=== PATIENT | female | born 1985 | race Caucasian/White ===

== ENCOUNTER 2016-04-03 15:54 | Emergency (ER) | payer OTHER, BC ==
[~2016-04-03] VITALS: Ht 154.9 cm; Wt 73.4 kg
[~2016-04-03 15:54] MED LIST: FLINTSTONES1 TABLET; MULTIVITAMIN1 EAC2 PO; Motrin PO
[2016-04-03 16:55] LABS: HEMATOCRIT 35.7 % (36.0-46.0); MCH 29.8 PG (29.0-34.0); MCHC 33.6 G/DL (30.0-36.0); MCV 88.6 FL (83-99); MEAN PLAT.VOLUME 10.3 uM^3 (9.5-12.4); PLATELET COUNT 261 K/uL (156-360); RBC DIS.WIDTH-CV 12.7 % (11.8-14.6); RBC DIS.WIDTH-SD 40.4 % (39-53); RED BLOOD COUNT 4.03 M/uL (3.80-5.20); WHITE BLOOD COUNT 13.8 K/uL (4.1-10.2)
[2016-04-03 21:39] LABS: ADD MIUA? YES; BILIRUBIN NEGATIVE; BLOOD LARGE; COLOR YELLOW ((YELLOW)); GLUCOSE (STRIP) NEGATIVE; KETONES 40; LEUKOCYTES NEGATIVE; NITRITE NEGATIVE; PROTEIN (STRIP) TRACE; SPECIFIC GRAVITY 1.026 (1.000-1.030); UROBILINOGEN 0.2 MG/DL (0.2-1.0)
[2016-04-03 22:23] LABS: BACTERIA 1+; CASTS NONE SEEN /LPF; CRYSTALS NONE SEEN; EPITHELIAL CELLS 2+; MUCUS 4+; RED BLOOD CELLS 15-20 /HPF (0-5); UCUL ADDED? NO; WHITE BLOOD CELLS 0-5 /HPF (0-5)
[2016-04-03] MEDS ORDERED: ZOFRAN4 MG PO (23:16)
[2016-04-03] MEDS ORDERED: TYLENOL WITH C1 EACH PO (23:16)
[2016-04-04 00:13] VITALS: BP 135/88
== END 2016-04-04 00:18 | disposition home or self-care (01) ==
LOC: EME 15:54
PROVIDERS: Emergency Medicine
DX: O99.89 Other specified diseases and conditions complicating pregnancy, childbirth and the puerperium (principal); R10.9 Unspecified abdominal pain; R31.9 Hematuria, unspecified; Z87.442 Personal history of urinary calculi; Z3A.29 29 weeks gestation of pregnancy
CPT/HCPCS: 76770; 81003; 85027; 99281; 99285; J2270; J2765; J7030

== ENCOUNTER → 2016-05-09 | Outpatient (CLI) | payer BC ==
[~2016-05-09] VITALS: Ht 154.9 cm; Wt 73.0 kg
[~2016-05-09] MED LIST changes: +PRENATAL TABLE1 EACH PO; +TYLENOL WITH C1 EACH PO; +ZOFRAN4 MG PO
[2016-05-09 09:22] VITALS: BP 129/76
== END | disposition home or self-care (01) ==
LOC: IVINF 08:58
DX: O36.0920 Maternal care for other rhesus isoimmunization, second trimester, not applicable or unspecified (principal); Z3A.28 28 weeks gestation of pregnancy
CPT/HCPCS: 96372; J2790

== ENCOUNTER 2016-06-14 06:08 | Outpatient (CLI) | payer BC ==
[~2016-06-14] VITALS: Ht 154.9 cm; Wt 73.9 kg
[2016-06-14 06:24] VITALS: BP 127/80
[2016-06-14 06:30] VITALS: BP 127/80
[2016-06-14 07:35] VITALS: BP 114/75
[2016-06-14 07:37] LABS: ADD MIUA? YES; BILIRUBIN NEGATIVE; BLOOD LARGE; COLOR YELLOW ((YELLOW)); GLUCOSE (STRIP) NEGATIVE; KETONES NEGATIVE; LEUKOCYTES NEGATIVE; NITRITE NEGATIVE; PROTEIN (STRIP) 30; SPECIFIC GRAVITY 1.023 (1.000-1.030); UROBILINOGEN 0.2 MG/DL (0.2-1.0)
[2016-06-14 07:48] LABS: BACTERIA RARE /HPF; CALCIUM OXALATE CRYSTALS 1+ /HPF; EPITHELIAL CELLS 1+ /HPF; MUCUS 2+ /LPF; RED BLOOD CELLS TNTC /HPF (0-5)
[2016-06-14 08:17] LABS: EOSINOPHIL (%) 0.3 % (0-5); HEMATOCRIT 34.1 % (36.0-46.0); IMMATURE GRANULOCYTE (%) 0.8 % (0.0-0.7); IMMATURE GRANULOCYTE COUNT 0.1 K/uL; INSTRUMENT ABS NEUTROPHIL CT 9.5 K/uL; LYMPHOCYTE COUNT 1.1 K/uL (1.0-2.8); MCH 27.8 PG (29.0-34.0); MCHC 32.3 G/DL (30.0-36.0); MCV 86.3 FL (83-99); MEAN PLAT.VOLUME 10.4 uM^3 (9.5-12.4); MONOCYTE (%) 5.7 % (3-12); MONOCYTE COUNT 0.6 K/uL (0-0.8); NEUTROPHIL (%) 83.5 % (45-76); NEUTROPHIL COUNT 9.5 K/uL (1.8-6.4); PLATELET COUNT 256 K/uL (156-360); RBC DIS.WIDTH-CV 12.9 % (11.8-14.6); RBC DIS.WIDTH-SD 40.6 % (39-53); RED BLOOD COUNT 3.95 M/uL (3.80-5.20); WHITE BLOOD COUNT 11.3 K/uL (4.1-10.2)
[2016-06-14] MEDS ORDERED: VICODIN 5-3001 EACH PO (09:42)
[2016-06-14 10:43] VITALS: BP 106/69
== END 2016-06-14 10:55 | disposition home or self-care (01) ==
LOC: LDRP-OP 06:08 → 2WEST 06:09 → LDRP-OP 09-01 09:27
PROVIDERS: Nurse Practitioner
DX: O26.893 Other specified pregnancy related conditions, third trimester (principal); R31.9 Hematuria, unspecified; Z3A.33 33 weeks gestation of pregnancy; R10.32 Left lower quadrant pain
CPT/HCPCS: 59025; 76770; 81003; 85025; 87086; G0378; J2270; J7120

== ENCOUNTER 2016-06-16 06:26 | Outpatient (CLI) | payer BC ==
[~2016-06-16] VITALS: Ht 154.9 cm; Wt 74.1 kg
[~2016-06-16 06:26] MED LIST changes: +VICODIN 5-3001 EACH PO
[2016-06-16 07:10] VITALS: BP 121/74
[2016-06-16 09:29] VITALS: BP 115/71
[2016-06-16] MEDS ORDERED: TAMSULOSIN HCL0.4 MG PO (11:55)
[2016-06-16] MEDS ORDERED: ZOFRAN ODT8 MG PO (11:55)
[2016-06-16] MEDS ORDERED: ENDOCET 5-3251 EACH PO (11:55)
== END 2016-06-16 14:10 | disposition home or self-care (01) ==
LOC: LDRP-OP 06:26 → 2WEST 06:27 → LDRP-OP 07-23 11:09
DX: O26.893 Other specified pregnancy related conditions, third trimester (principal); N20.0 Calculus of kidney; Z3A.33 33 weeks gestation of pregnancy
CPT/HCPCS: 59025; G0378; J2270; J2405; J7120

== ENCOUNTER 2016-08-02 07:03 | Inpatient (IN) | payer BC ==
[2016-08-02] VITALS (12 sets, daily range): BP systolic 128–170; BP diastolic 76–103
[~2016-08-02] VITALS: Ht 154.9 cm; Wt 77.0 kg
[~2016-08-02 07:03] MED LIST changes: +ENDOCET 5-3251 EACH PO; +TAMSULOSIN HCL0.4 MG PO; +ZOFRAN ODT8 MG PO
[2016-08-02 08:38] LABS: EOSINOPHIL (%) 0.4 % (0-5); HEMATOCRIT 36.3 % (36.0-46.0); IMMATURE GRANULOCYTE (%) 0.5 % (0.0-0.7); INSTRUMENT ABS NEUTROPHIL CT 6.2 K/uL; MCH 27.4 PG (29.0-34.0); MCHC 32.5 G/DL (30.0-36.0); MCV 84.2 FL (83-99); MEAN PLAT.VOLUME 10.8 uM^3 (9.5-12.4); MONOCYTE COUNT 0.5 K/uL (0-0.8); NEUTROPHIL (%) 80.5 % (45-76); NEUTROPHIL COUNT 6.2 K/uL (1.8-6.4); PLATELET COUNT 257 K/uL (156-360); RBC DIS.WIDTH-CV 13.6 % (11.8-14.6); RED BLOOD COUNT 4.31 M/uL (3.80-5.20); WHITE BLOOD COUNT 7.7 K/uL (4.1-10.2)
[2016-08-02] MEDS ORDERED: MOTRIN800 MG PO (09:18)
[2016-08-02] MEDS ORDERED: PERCOCET 5/31 TABLET PO (09:18)
[2016-08-03 07:37] VITALS: BP 128/87
[2016-08-03 07:39] LABS: EOSINOPHIL (%) 0.4 % (0-5); EOSINOPHIL COUNT 0.1 K/uL (0-0.3); HEMATOCRIT 31.1 % (36.0-46.0); IMMATURE GRANULOCYTE (%) 0.4 % (0.0-0.7); INSTRUMENT ABS NEUTROPHIL CT 8.4 K/uL; LYMPHOCYTE COUNT 1.9 K/uL (1.0-2.8); MCH 27.1 PG (29.0-34.0); MCHC 31.8 G/DL (30.0-36.0); MCV 85.2 FL (83-99); MEAN PLAT.VOLUME 10.9 uM^3 (9.5-12.4); MONOCYTE (%) 7.5 % (3-12); MONOCYTE COUNT 0.9 K/uL (0-0.8); NEUTROPHIL (%) 74.5 % (45-76); NEUTROPHIL COUNT 8.4 K/uL (1.8-6.4); PLATELET COUNT 233 K/uL (156-360); RBC DIS.WIDTH-CV 13.4 % (11.8-14.6); RBC DIS.WIDTH-SD 41.7 % (39-53); RED BLOOD COUNT 3.65 M/uL (3.80-5.20)
[2016-08-03 07:57] LABS: WHITE BLOOD COUNT 11.3 K/uL (4.1-10.2)
[2016-08-03 10:53] VITALS: BP 129/84
[2016-08-03 16:13] VITALS: BP 132/91
[2016-08-03 22:39] VITALS: BP 147/90
[2016-08-04 03:22] VITALS: BP 139/83; BP 152/88
[2016-08-04 07:39] VITALS: BP 149/84
[2016-08-04 11:29] VITALS: BP 144/80
== END 2016-08-04 14:40 | disposition home or self-care (01) | DRG 766 ==
LOC: 2WEST 07:03 → 2SOUTH 08:36 → 2WEST 08-04 14:40
PROVIDERS: Obstetrics & Gynecology
PROC: 10D00Z1 Extraction of Products of Conception, Low, Open Approach (ICD-10-PCS; principal; 2016-08-02)
DX: O34.211 Maternal care for low transverse scar from previous cesarean delivery (principal); O69.81X0 Labor and delivery complicated by cord around neck, without compression, not applicable or unspecified; O13.4 Gestational [pregnancy-induced] hypertension without significant proteinuria, complicating childbirth; O99.62 Diseases of the digestive system complicating childbirth; K21.9 Gastro-esophageal reflux disease without esophagitis; O99.89 Other specified diseases and conditions complicating pregnancy, childbirth and the puerperium; M54.31 Sciatica, right side; Z87.891 Personal history of nicotine dependence; Z3A.40 40 weeks gestation of pregnancy; Z37.0 Single live birth
CPT/HCPCS: 83030; 85025; 86900; 86901; J0690; J1100; J1170; J1885; J2274; J2405; J2765; J2790; J3010; J7120